=== PATIENT | female | born 1960 | race Caucasian/White ===

== ENCOUNTER 2017-02-20 12:40 | Emergency (ER) | payer MEDICARE, OTHER ==
[~2017-02-20] VITALS: Ht 167.6 cm; Wt 53.0 kg
[~2017-02-20 12:40] MED LIST: LORT5TAB PO; OMEP40CA2 PO; PROV10TA PO; SERT-129 PO; TRAZ50TA4 PO
[2017-02-20 12:42] VITALS: BP 135/79; PULSE 94; RESP 20; TEMP 98.8; O2SAT 99
--- NOTE | 2017-02-20 13:01 | PD ---
Physical Exam Time Seen by Provider: 12:59 Narrative 56 y/o female here with h/a, vomiting, dizziness. Vital signs reviewed. Seen at triage desk. Awaiting bed placement. Data Data Last Documented VS Vital Signs Date Time Temp Pulse Resp B/P Pulse Ox O2 Delivery O2 Flow Rate FiO2 02/20/17 12:42 98.8 94 20 135/79 99 Room Air [facility] Medical Record Reviewed: Yes Supervised Visit with LEISA: Pineda Blevins Feb 20, 2017 13:01
[2017-02-21] MEDS ORDERED: HYDR-3533 PO (11:43)
[2017-02-21] MEDS ORDERED: ZOFR4TAB PO (11:43)
== END 2017-02-20 14:54 | disposition left against medical advice (07) ==
LOC: NED 12:40
DX: R51 Headache (principal); R11.10 Vomiting, unspecified; R42 Dizziness and giddiness; Z53.21 Procedure and treatment not carried out due to patient leaving prior to being seen by health care provider
CPT/HCPCS: 99281

== ENCOUNTER 2017-02-21 06:19 | Emergency (ER) | payer MEDICAID ==
[~2017-02-21] VITALS: Ht 167.6 cm; Wt 55.0 kg
[2017-02-21 06:21] VITALS: BP 111/78; PULSE 92; RESP 16; TEMP 98.5; O2SAT 98
[2017-02-21 06:37] VITALS: BP 109/65; PULSE 76; RESP 18; O2SAT 98
[2017-02-21] MEDS ORDERED: SODIUM CHLOR 0.9% 1000 ML INJ 1,000 ML IV SCH (07:12)
[2017-02-21] MEDS ORDERED: SODIUM CHLORIDE 0.9% FLUSH 10 ML FLUSH IV FLUSH PRN (07:15)
--- NOTE | 2017-02-21 07:18 | PD ---
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 Patient states that she has had severe burning pain in her left lateral abdominal area and flank. She reports nausea vomiting yesterday. She states she had an episode in the morning and then the early evening. She was here last night however the weight was several hours and decided to come back this morning. She denies any fevers, chills. She reports her headache is bifrontal. She reports that it "affects the left eye". She states this is not new. She states she's had this for at least a year. She reports that she had a CT scan in [place] and was told that she had a pineal gland tumor and that it was not in an area that they could remove it. She's had no further treatment for this. The patient denies any history of abdominal pain like this. She denies any rash in her flank. She denies any dysuria, urgency, frequency. She denies any hematuria. There are no other complaints time my examination. 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) Chemotherapy: Yes (7 yrs ago) Cerebrovascular Accident: Yes (stroke ) Diminished Hearing: Yes (ringing in her ears) Gastrointestinal Disorders: Yes Glaucoma: No Headaches: Yes Medical other: Yes (rhumatic fever as a child) Neurologic: Yes (brain tumor) Reproductive: Yes (OVARIAN CYSTS) Radiation Therapy: No Tetanus Vaccination: Unknown Influenza Vaccination: No ?: Not Menopausal: Yes Ovarian Cysts: Yes Past Surgical History AICD: No Appendectomy: Yes (2005) Section: Yes Insulin Pump: No Pacemaker: No Other Surgery: Yes (hernia repair in groin) Social History Alcohol Use: No Tobacco Use: Yes (1/2 PPD) Substance Use: No (Pt denies any ellicit drugs, some alcohol, 1/2 PPD smoker) Allergies-Medications (Allergen,Severity, Reaction): Coded Allergies: No Known Allergies (Verified , 02/21/17) Reported Meds & Prescriptions Reported Meds & Active Scripts Active Lortab (Hydrocodone-Acetaminophen) 5-325 Mg Tab 1 Tab PO Q6H PRN Zofran (Ondansetron HCl) 4 Mg Tab 4 Mg PO Q8HR PRN Review of Systems Except as stated in HPI: all other systems reviewed are Neg General / Constitutional: No: Fever, Chills HENT: Positive: Headaches, No: Neck Stiffness (right frontal), Neck Pain Cardiovascular: No: Chest Pain or Discomfort, Palpitations Respiratory: No: Cough Gastrointestinal: Positive: Nausea, Vomiting, Abdominal Pain (lateral abdominal pain with radiation to her left flank and back), No: Diarrhea, Changes in Bowel Habits Genitourinary: No: Frequency, Dysuria, Hematuria Musculoskeletal: No: Weakness, Pain (left lateral abdominal pain with radiation to her left flank) Neurologic: Positive: Headache, Other (chronic "left eye weakness".), No: Weakness, Dizziness, Incontinence, Sensory Disturbance Physical Exam Narrative GENERAL: Well developed well-nourished female in no acute rest her distress. SKIN: Focused skin assessment warm/dry. HEAD: Atraumatic. Normocephalic. EYES: No scleral icterus. No injection or drainage. No obvious lid lag. Extraocular muscles appear intact. ENT: No nasal bleeding or discharge. Mucous membranes pink and dry.. NECK: Trachea midline. No JVD. CARDIOVASCULAR: Regular rate and rhythm. No murmur appreciated. RESPIRATORY: No accessory muscle use. Clear to auscultation. Breath sounds equal bilaterally. GASTROINTESTINAL: Abdomen soft, non-tender, nondistended. No rebound or guarding. BACK: No CVA tenderness. No rash. Subjective "burning" sensation across her left lateral abdomen and flank. MUSCULOSKELETAL: No obvious deformities. No clubbing. No cyanosis. No edema. NEUROLOGICAL: Awake and alert. No obvious cranial nerve deficits. Motor grossly within normal limits. Normal speech. Data Data Last Documented VS Vital Signs Date Time Temp Pulse Resp B/P Pulse Ox O2 Delivery O2 Flow Rate FiO2 02/21/17 08:56 61 16 102/64 99 Room Air 02/21/17 07:19 97.8 Orders Complete Blood Count With Diff (02/21/17 07:12) Comprehensive Metabolic Panel (02/21/17 07:12) Lipase (02/21/17 07:12) Urinalysis - C+S If Indicated (02/21/17 07:12) Iv Access Insert/Monitor (02/21/17 07:12) Ecg Monitoring (02/21/17 07:12) Oximetry (02/21/17 07:12) Sodium Chlor 0.9% 1000 Ml Inj (Ns 1000 M (02/21/17 07:12) Sodium Chloride 0.9% Flush (Ns Flush) (02/21/17 07:15) Electrocardiogram (02/21/17 07:12) Creatine Kinase (Cpk) (02/21/17 07:12) Troponin I (02/21/17 07:12) Ct Abd/Pel W/O Iv Contrast (02/21/17 08:37) Ct Brain W & W/O Iv Contrast (02/21/17 ) Iohexol 350 Inj (Omnipaque 350 Inj) (02/21/17 10:50) Labs Laboratory Tests Test 02/21/17 07:20 White Blood Count 6.6 TH/MM3 Red Blood Count 5.19 MIL/MM3 Hemoglobin 17.4 GM/DL Hematocrit 49.6 % Mean Corpuscular Volume 95.6 FL Mean Corpuscular Hemoglobin 33.5 PG Mean Corpuscular Hemoglobin 35.0 % Concent Red Cell Distribution Width 13.6 % Platelet Count 171 TH/MM3 Mean Platelet Volume 9.0 FL Neutrophils (%) (Auto) 52.4 % Lymphocytes (%) (Auto) 38.1 % Monocytes (%) (Auto) 7.6 % Eosinophils (%) (Auto) 1.6 % Basophils (%) (Auto) 0.3 % Neutrophils # (Auto) 3.5 TH/MM3 Lymphocytes # (Auto) 2.5 TH/MM3 Monocytes # (Auto) 0.5 TH/MM3 Eosinophils # (Auto) 0.1 TH/MM3 Basophils # (Auto) 0.0 TH/MM3 CBC Comment DIFF FINAL Differential Comment Urine Color YELLOW Urine Turbidity CLEAR Urine pH 6.0 Urine Specific [place] 1.009 Urine Protein NEG mg/dL Urine Glucose (UA) NEG mg/dL Urine Ketones NEG mg/dL Urine Occult Blood MOD Urine Nitrite NEG Urine Bilirubin NEG Urine Urobilinogen LESS THAN 2.0 MG/DL Urine Leukocyte Esterase NEG Urine RBC 11 /hpf Urine WBC 1 /hpf Urine Mucus FEW /lpf Microscopic Urinalysis Comment CULT NOT INDICATED Sodium Level 139 MEQ/L Potassium Level 3.6 MEQ/L Chloride Level 105 MEQ/L Carbon Dioxide Level 26.1 MEQ/L Anion Gap 8 MEQ/L Blood Urea Nitrogen 17 MG/DL Creatinine 0.82 MG/DL Estimat Glomerular Filtration 72 ML/MIN Rate Random Glucose 84 MG/DL Calcium Level 9.9 MG/DL Total Bilirubin 1.7 MG/DL Aspartate Amino Transf 16 U/L (AST/SGOT) Alanine Aminotransferase 21 U/L (ALT/SGPT) Alkaline Phosphatase 91 U/L Total Creatine Kinase 72 U/L Troponin I LESS THAN 0.02 NG/ML Total Protein 8.3 GM/DL Albumin 4.5 GM/DL Lipase 133 U/L MDM Medical Decision Making Medical Screen Exam Complete: Yes Emergency Medical Condition: Yes Differential Diagnosis Kidney stone versus pyelonephritis versus diverticulitis versus atypical ACS versus worsening pineal gland tumor Narrative Course 56-year-old female with a history of pancreatic cancer, GI cancer, who presents here with complaints of left sided flank pain that burning in sensation. Patient states that it's been present for 2 weeks. She had nausea vomiting yesterday. She has no nausea vomiting today. She was in the department last night however it was too busy and she left and came back this morning. There is no reported fevers, chills. She reports normal bowel movements and no dysuria. She does have blood in her urine. CAT scan without contrast shows no evidence of renal calculi. There is a 1 cm mass noted on the top of her right kidney. I ordered a CT scan of her brain with contrast. The patient reported he has a history of a pineal gland tumor. There is no instability noted on the CAT scan. I discussed with the patient that at this point we have no obvious cause for the left flank pain. She is afebrile. White blood cell counts within normal limits. She did have blood in her urine. She possibly could have had a stone in the past. Given her cancer history in the nodule on her right kidney, I do not put in a mandatory consult for urologist. She will also be given information for the [facility] to establish a primary care physician. I did state that she will need to see the clinic and likely see neurology for her pineal gland tumor that she reportedly has. She'll be given a prescription for Zofran and Lortab. Diagnosis Primary Impression: Left flank pain Additional Impressions: mild hematuria. cephalgia Cephalgia reported pineal gland tumor history of pancreatic cancer History of pancreatic cancer Referrals: [facility] Additional Instructions: Return if feeling worse. Make appointment with a primary care physician. We will place a mandatory referral for your right kidney mass. We will also recommend that you follow up with a neurologist once she'll establish with a primary care physician to follow your pineal gland tumor. Thank you for choosing [facility], we know you have a choice and healthcare. Med/Other Pt SpecificInfo: Prescription(s) given Scripts Hydrocodone-Acetaminophen (Lortab)5-325 Mg Tab1 Tab PO Q6H PRN (PAIN) #10 TAB Ref 0 Prov:Damir Kingston MD 02/21/17 Ondansetron (Zofran)4 Mg Tab4 Mg PO Q8HR PRN (NAUSEA OR VOMITING) #30 TAB Ref 0 Prov:Damir Kingston MD 02/21/17 Disposition: 01 DISCHARGE HOME Condition: Stable Damir Kingston MD Feb 21, 2017 07:18
[2017-02-21 07:19] VITALS: BP 98/59; PULSE 60; RESP 16; TEMP 97.8; O2SAT 99
[2017-02-21 07:45] LABS: AUTOMATED NEUTROPHIL # 3.5 TH/MM3 (1.8-7.7); BASOPHIL % 0.3 % (0.0-2.0); EOSINOPHIL # 0.1 TH/MM3 (0-0.4); EOSINOPHIL % 1.6 % (0.0-4.0); HEMATOCRIT 49.6 % (35.0-46.0); HEMO FLAGS DIFF FINAL; LYMPH % 38.1 % (9.0-44.0); LYMPHOCYTE # 2.5 TH/MM3 (1.0-4.8); MEAN CELL VOLUME 95.6 FL (80.0-100.0); MEAN CORPUSCULAR HEMOGLOBIN 33.5 PG (27.0-34.0); MONO % 7.6 % (0.0-8.0); NEUT % 52.4 % (16.0-70.0); PLATELET COUNT 171 TH/MM3 (150-450); RED BLOOD COUNT 5.19 MIL/MM3 (4.00-5.30); RED CELL DISTRIBUTION WIDTH 13.6 % (11.6-17.2); WHITE BLOOD COUNT 6.6 TH/MM3 (4.0-11.0)
[2017-02-21 07:48] LABS: BLOOD, URINE MOD (NEG); COMMENT (UR) CULT NOT INDICATED; CULTURE IF INDICATED CULT NOT INDICATED; GLUCOSE,URINE NEG (NEG); KETONE, URINE NEG (NEG); MUCUS URINE FEW /lpf (OCC); NITRITE,URINE NEG (NEG); URINE COLOR YELLOW (YELLW/STRAW)
[2017-02-21 08:07] LABS: AST (GOT) 16 U/L (15-37); BICARBONATE 26.1 MEQ/L (21.0-32.0); BLOOD UREA NITROGEN 17 MG/DL (7-18); GLOMERULAR FILTRATION RATE 72 ML/MIN (>89)
[2017-02-21 08:08] LABS: ALT (GPT) 21 U/L (10-53)
[2017-02-21 08:12] LABS: ALKALINE PHOSPHATASE 91 U/L (45-117); TOTAL BILIRUBIN ADULT 1.7 MG/DL (0.2-1.0)
[2017-02-21 08:18] LABS: CREATINE KINASE 72 U/L (26-192)
[2017-02-21 08:24] LABS: ANION GAP 8 MEQ/L (5-15); CHLORIDE 105 MEQ/L (98-107); POTASSIUM 3.6 MEQ/L (3.5-5.1); SODIUM (NA) 139 MEQ/L (136-145)
[2017-02-21 08:56] VITALS: BP 102/64; PULSE 61; RESP 16; O2SAT 99
[2017-02-21] MEDS ORDERED: IOHEXOL 350 MG/ML 10 ML VIAL (for RAD DIAG) IV ONE (10:50)
--- NOTE | 2017-02-21 10:57 | RADRPT ---
EXAM DATE/TIME: 02/21/2017 10:25 [facility] COMPARISON: CT BRAIN W/O CONTRAST, April 19, 2013, 21:35. INDICATIONS : Cephalgia, history of pineal tumor. IV CONTRAST: 92 cc Omnipaque 350 (iohexol) IV RADIATION DOSE: 56.38 CTDIvol (mGy) MEDICAL HISTORY : Cerebrovascular disease. Stomach and pancreatic cancer SURGICAL HISTORY : Appendectomy. ENCOUNTER: Initial ACUITY: 1 week PAIN SCALE: 4/10 LOCATION: Bilateral cranial TECHNIQUE: Multiple contiguous axial images were obtained of the head. Using automated exposure control and adj ustment of the mA and/or kV according to patient size, radiation dose was kept as low as reasonably a chievable to obtain optimal diagnostic quality images. DICOM format image data is available electro nically for review and comparison. FINDINGS: CEREBRUM: The ventricles are normal for age. No evidence of midline shift, cerebral edema or blood products. No extra-axial fluid collections are seen. POSTERIOR FOSSA: The cerebellum and brainstem are intact. The 4th ventricle is midline. The cerebellar pontine angle is unremarkable. Prominent stable calcifications are present in the pineal region. EXTRACRANIAL: The visualized portion of the orbits is intact. SKULL: The calvaria is intact. No evidence of skull fracture. POST CONTRAST: No abnormal areas of parenchymal or dural enhancement. No evidence of blood-brain barrier breakdown. CONCLUSION: Negative for an acute process. Ata Obrien MD FACR on February 21, 2017 at 10:54 Board Certified Radiologist. This report was verified electronically.
--- NOTE | 2017-02-21 11:00 | RADRPT ---
EXAM DATE/TIME: 02/21/2017 10:28 [facility] COMPARISON: No previous studies available for comparison. INDICATIONS : Left flank pain. ORAL CONTRAST: No oral contrast ingested. RADIATION DOSE: 13.28 CTDIvol (mGy) MEDICAL HISTORY : Pancreatic and stomach cancer SURGICAL HISTORY : Appendectomy. ENCOUNTER: Initial ACUITY: 1 week PAIN SCALE: 5/10 LOCATION: Left flank TECHNIQUE: Volumetric scanning of the abdomen and pelvis was performed. Using automated exposure control and ad justment of the mA and/or kV according to patient size, radiation dose was kept as low as reasonably achievable to obtain optimal diagnostic quality images. DICOM format image data is available electro nically for review and comparison. FINDINGS: The lung base are clear. The portion of the liver and spleen identified are free of focal defects. The pancreas and adrenal g lands are unremarkable. Right kidney: There are no calcifications in the right kidney. Small 1 cm low-density mass is identified incomplet gelacio evaluated on today's study. Left kidney: There are no calcifications in the left kidney. There are no calcifications along the expected course of the right or left ureter. Pelvic contents are unremarkable Moderate stool is seen throughout the colon Mild degenerative changes are present in the lumbar spine CONCLUSION: Negative for stone or obstruction. 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 1 cm mass right kidney completely evaluated. Ata Obrien MD FACR on February 21, 2017 at 10:55 Board Certified Radiologist. This report was verified electronically.
[2017-02-21] MEDS ORDERED: ZOFR4TAB PO (11:43)
[2017-02-21] MEDS ORDERED: HYDR-3533 PO (11:43)
[2017-02-21 11:46] VITALS: BP 100/68; TEMP 97.8
--- NOTE | 2017-02-21 13:22 | EKG ---
Date Performed: 02/21/2017 Time Performed: 07:42:16 PTAGE: 56 years EKG: SINUS BRADYCARDIA Nonspecific T wave changes ABNORMAL ECG Compared to prior electrocardiogr am, Nonspecific T-wave changes are less marked. PREVIOUS TRACING : 04/19/2013 21.22 DOCTOR: Vineet Beal Interpretating Date/Time 02/21/2017 13:21:29
== END 2017-02-21 11:46 | disposition home or self-care (01) ==
LOC: NEPC 06:19
DX: R10.9 Unspecified abdominal pain (principal); R31.9 Hematuria, unspecified; R51 Headache; D49.7 Neoplasm of unspecified behavior of endocrine glands and other parts of nervous system; N28.89 Other specified disorders of kidney and ureter; R11.2 Nausea with vomiting, unspecified; R94.31 Abnormal electrocardiogram [ECG] [EKG]; F17.200 Nicotine dependence, unspecified, uncomplicated; Z85.07 Personal history of malignant neoplasm of pancreas; Z85.028 Personal history of other malignant neoplasm of stomach; Z86.2 Personal history of diseases of the blood and blood-forming organs and certain disorders involving the immune mechanism; Z86.59 Personal history of other mental and behavioral disorders; Z86.79 Personal history of other diseases of the circulatory system; Z87.19 Personal history of other diseases of the digestive system; Z87.42 Personal history of other diseases of the female genital tract
CPT/HCPCS: 70470; 74176; 80053; 81001; 82550; 83690; 84484; 85025; 93005; 96360; 99285; J7030; Q9967